=== PATIENT | female | born 1980 | race Caucasian/White ===

== ENCOUNTER 2016-09-28 20:40 | Emergency (ER) | payer MEDICAID ==
[2016-09-28] MEDS ORDERED: CLINDAMYCIN 150 MG CAP PO ONE (21:17)
--- NOTE | 2016-09-28 21:20 | Emergency Department Record ---
History of Present Illness - General Chief complaint: Dental Stated complaint: DENTAL PAIN Time Seen by Provider: 09/28/16 21:17 Source: Patient Mode of Arrival: Ambulatory Limitations: No limitations - History of Present Illness Initial comments: 36 yo female presents to ED with a CC of dental pain to the left lower mandible. Patient reports a history of dental caries, but reports her symptoms have worsened and that she is concerned about dental abscess. Patient denies fevers, chills. or recent illness symptoms. MD complaint: Tooth pain Onset/Timin -: Days(s) Location: Tooth # 1 - Dental caries Severity scale (1-10): 10 Quality: Sharp Consistency: Constant, Getting worse Improves with: None Worsens with: None Context-Epistaxis: Aspirin use Context- Dental: History of dental caries Associated Symptoms: Toothache - Related Data Home Medications Medication Instructions Recorded Confirmed Last Taken Aspirin 325 mg PO DAILY 09/28/16 09/28/16 Unknown Atorvastatin Calcium 20 mg PO DAILY 09/28/16 09/28/16 Unknown Levothyroxine Sodium 50 mcg PO DAILY 09/28/16 09/28/16 Unknown Metoprolol Tartrate 25 mg PO DAILY 09/28/16 09/28/16 Unknown Omeprazole 40 mg PO DAILY 09/28/16 09/28/16 Unknown Sertraline HCl [Zoloft] 50 mg PO DAILY 09/28/16 09/28/16 Unknown Previous Rx's Medication Instructions Recorded Clindamycin HCl 300 mg PO Q6H #28 capsule 09/28/16 Hydrocodone/Acetaminophen [[place] 1 tab PO Q6H PRN #10 tab 09/28/16 5mg/325mg] Allergies Allergy/AdvReac Type Severity Reaction Status Date / Time Penicillins Allergy Intermediate RASH Unverified 09/02/16 16:23 ibuprofen [From Motrin] AdvReac Intermediate cannot Unverified 09/02/16 16:23 take due to cardiac condition Travel Screening - Travel/Exposure Within Last 30 Days Have you traveled within the last 30 days?: No Review of Systems Constitutional: Denies: Chills, Fever, Malaise, Night sweats Eyes: Denies: Eye discharge, Eye pain ENT: Reports: Dental pain. Denies: Congestion, Ear pain, Epistaxis Respiratory: Denies: Cough, Dyspnea Cardiovascular: Denies: Chest pain, Dyspnea on exertion Endocrine: Denies: Fatigue, Heat or cold intolerance Gastrointestinal: Denies: Abdominal pain, Nausea, Vomiting Genitourinary: Denies: Incontinence, Retention Musculoskeletal: Denies: Arthralgia, Back pain Skin: Denies: Bruising, Change in color Neurological: Denies: Abnormal gait, Confusion, Headache, Seizure Psychiatric: Denies: Anxiety Hematological/Lymphatic: Denies: Anemia, Blood Clots Past Medical History - SOCIAL HISTORY Smoking Status: Never smoker Alcohol Use: None Drug Use: None - RESPIRATORY Hx Respiratory Disorders: No - CARDIOVASCULAR Hx Cardio Disorders: Yes Hx Hypertension: Yes Comment:: Mumur - NEURO Hx Neuro Disorders: No - GI Hx GI Disorders: Yes Hx GI Bleed: Yes - Hx Genitourinary Disorders: Yes Hx Kidney Stones: Yes (hx) - ENDOCRINE Hx Endocrine Disorders: Yes Hx Thyroid Disease: Yes (hypo) - MUSCULOSKELETAL Hx Musculoskeletal Disorders: No - PSYCH Hx Psych Problems: Yes Hx Anxiety: Yes Hx Depression: Yes - HEMATOLOGY/ONCOLOGY Hx Hematology/Oncology Disorders: No Family Medical History Any Significant Family History?: No Physical Exam - General General Appearance: Alert, Oriented x3, Cooperative, Moderate distress Limitations: No limitations - Head Head exam: Atraumatic, Normocephalic, Normal inspection Head exam detail: negative: Abrasion, Contusion, Higgins's sign, General tenderness, Hematoma, Laceration - Eye Eye exam: Normal appearance. negative: Conjunctival injection, Periorbital swelling, Periorbital tenderness, Scleral icterus - ENT Ear exam: negative: Auricular hematoma, Auricular trauma Nasal Exam: negative: Active bleeding, Discharge, Dried blood, Foreign body Mouth exam: negative: Drooling, Laceration, Muffled voice, Tongue elevation Teeth exam: Dental caries, Dental tenderness # Throat exam: negative: Tonsillar erythema, Tonsillomegaly, R peritonsillar mass , L peritonsillar mass Image of Mouth/Teeth: 1 - Large dental carry present, no gingival abscess is present. - Neck Neck exam: Normal inspection. negative: Meningismus, Tenderness - Respiratory Respiratory exam: Normal lung sounds bilaterally. negative: Rales, Respiratory distress, Rhonchi, Stridor - Cardiovascular Cardiovascular Exam: Regular rate, Normal rhythm, Normal heart sounds - GI/Abdominal GI/Abdominal exam: Soft. negative: Rebound, Rigid, Tenderness - Rectal Rectal exam: Deferred - exam: Deferred - Extremities Extremities exam: Normal inspection. negative: Calf tenderness, Pedal edema, Tenderness - Back Back exam: Denies: CVA tenderness (R), CVA tenderness (L) - Neurological Neurological exam: Alert, Normal gait, Oriented X3 - Psychiatric Psychiatric exam: Normal affect, Normal mood - Skin Skin exam: Normal color. negative: Abrasion Type of lesion: negative: abrasion Course Vital Signs 09/28/16 20:56 Temperature 98.3 F Pulse Rate [ 65 Pulse Ox Probe] Respiratory 24 Rate Blood Pressure 176/90 [Left Arm] Pulse Ox 97 - Reevaluation(s) Reevaluation #1: 09/28/16 21:28 Patient reassessed and reports significant improvement following dental block, will discharge home on Clindamycin and [place] for her pain symptoms with instructions to follow-up with a dentist from our referral list in 1-3 days as directed. Procedures - Nerve Block Consent Obtained: Verbal consent Time Out Performed: Yes Local Anesthetic Used: Marcaine 0.5% Amount of anesthesia used: 2.5 Side: Right Intraoral Nerve Block: Inferior alveolar, Supraperiosteal Procedure Successful: Yes Complications: None Patient Tolerated Procedure: Good Disposition Disposition: Discharge Clinical Impression: Dental caries Disposition: Home, Self-Care Condition: (2) Stable Instructions: Dental Abscess (ED) Additional Instructions: Return to ED if your symptoms worsen or if you have any concerns. Clindamycin and [place] as directed for pain symptoms. Follow-up with a dentist from the referral form in 1-3 days as directed. Prescriptions: Clindamycin HCl 300 mg PO Q6H #28 capsule Hydrocodone/Acetaminophen [[place] 5mg/325mg] 1 tab PO Q6H PRN #10 tab PRN Reason: Pain - General Forms: Patient Portal Access Time of Disposition: 21:20
[2016-09-28] MEDS ORDERED: HYDROCODONE/APAP 5/325MG TABLET PO ONE (21:38)
== END 2016-09-28 21:58 | disposition home or self-care (01) ==
LOC: ER 20:40
DX: K02.9 Dental caries, unspecified (principal); E03.9 Hypothyroidism, unspecified
CPT/HCPCS: 99282

== ENCOUNTER 2017-09-08 19:28 | Emergency (ER) | payer MEDICAID ==
[2017-09-08] MEDS ORDERED: ONDANSETRON 4 MG ODT TABLET SL ONE (20:01)
--- NOTE | 2017-09-08 20:07 | Emergency Department Record ---
History of Present Illness - General Chief complaint: Toothache Stated complaint: DENTAL PAIN FROM ORAL SURGERY Time Seen by Provider: 09/08/17 20:01 Source: Patient Mode of Arrival: Ambulatory Limitations: No limitations - History of Present Illness Initial comments: 37 yo female presents to ED for evaluation of post-operative pain following (4) teeth that were removed by an oral surgeon 8 hours ago. Patient reports that she was prescribed [place] 5 mg, has taken one tablet following surgery, (1) more 2 hours ago but reports that her pain symptoms persist. Patient also reports nausea, reports that she has been swallowing a lot of blood. Patient denies contacting her oral surgeon ilana. Patient also reports a history of cardiac bypass surgery. MD complaint: Tooth pain Onset/Timin -: Hour(s) Severity: Severe Quality: Aching Consistency: Constant Improves with: None Worsens with: None Context- Dental: Poor dental care - Related Data Previous Rx's Medication Instructions Recorded Hydrocodone/Acetaminophen [[place] 1 tab PO Q6H PRN #10 tab 09/28/16 5mg/325mg] Allergies Allergy/AdvReac Type Severity Reaction Status Date / Time Penicillins Allergy Intermediate RASH Verified 09/08/17 20:03 ibuprofen [From Motrin] AdvReac Intermediate cannot Verified 09/08/17 20:03 take due to cardiac condition Review of Systems Constitutional: Denies: Chills, Fever, Malaise, Night sweats Eyes: Denies: Eye discharge, Eye pain ENT: Reports: Dental pain. Denies: Congestion, Ear pain, Epistaxis Respiratory: Denies: Cough, Dyspnea Cardiovascular: Denies: Chest pain, Dyspnea on exertion Endocrine: Denies: Fatigue, Heat or cold intolerance Gastrointestinal: Denies: Abdominal pain, Nausea, Vomiting Genitourinary: Denies: Incontinence, Retention Musculoskeletal: Denies: Arthralgia, Back pain, Gout, Joint swelling Skin: Denies: Bruising, Change in color Neurological: Denies: Abnormal gait, Confusion, Headache, Seizure Psychiatric: Denies: Anxiety Hematological/Lymphatic: Denies: Anemia, Blood Clots Past Medical History - SOCIAL HISTORY Smoking Status: Never smoker Drug Use: None - RESPIRATORY Hx Respiratory Disorders: No - CARDIOVASCULAR Hx Cardio Disorders: Yes Hx Hypertension: Yes Comment:: [facility]ur - NEURO Hx Neuro Disorders: No - GI Hx GI Disorders: Yes Hx GI Bleed: Yes - Hx Genitourinary Disorders: Yes Hx Kidney Stones: Yes (hx) - ENDOCRINE Hx Endocrine Disorders: Yes Hx Thyroid Disease: Yes (hypo) - MUSCULOSKELETAL Hx Musculoskeletal Disorders: No - PSYCH Hx Psych Problems: Yes Hx Anxiety: Yes Hx Depression: Yes - HEMATOLOGY/ONCOLOGY Hx Hematology/Oncology Disorders: No Physical Exam - General General Appearance: Alert, Oriented x3, Cooperative, Mild distress (Patient is resting calmly on examination) Limitations: No limitations - Head Head exam: Atraumatic, Other (STS to the right mid-face) Head exam detail: General tenderness. negative: Abrasion, Contusion, Higgins's sign, Hematoma, Laceration - Eye Eye exam: Normal appearance. negative: Conjunctival injection, Periorbital swelling, Periorbital tenderness, Scleral icterus - ENT Ear exam: negative: Auricular hematoma, Auricular trauma Nasal Exam: negative: Active bleeding, Discharge, Dried blood, Foreign body Mouth exam: negative: Drooling, Laceration, Muffled voice, Tongue elevation Image of Mouth/Teeth: 1 - Dental extraction, mild bleeding present 2 - Dental extraction, mild bleeding present 3 - Dental extraction, mild bleeding present 4 - Dental extraction, mild bleeding present - Neck Neck exam: Normal inspection. negative: Meningismus, Tenderness - Respiratory Respiratory exam: Normal lung sounds bilaterally. negative: Rales, Respiratory distress, Rhonchi, Stridor - Cardiovascular Cardiovascular Exam: Regular rate, Normal rhythm, Normal heart sounds, Other ( Well-healed scar to the midline of the chest) - GI/Abdominal GI/Abdominal exam: Soft. negative: Rebound, Rigid, Tenderness - Rectal Rectal exam: Deferred - exam: Deferred - Extremities Extremities exam: Normal inspection. negative: Pedal edema, Tenderness - Back Back exam: Denies: CVA tenderness (R), CVA tenderness (L) - Neurological Neurological exam: Alert, Normal gait, Oriented X3 - Psychiatric Psychiatric exam: Normal affect, Normal mood - Skin Skin exam: Normal color. negative: Abrasion Type of lesion: negative: abrasion Course Vital Signs 09/08/17 19:56 Temperature 98.5 F Pulse Rate [ 67 Pulse Ox Probe] Respiratory 16 Rate Blood Pressure 163/83 [Left Arm] Pulse Ox 97 - Reevaluation(s) Reevaluation #1: 09/08/17 20:08 Patient was seen and examined, patient appears calm on examination with pain controlled. Will administer Zofran and Toradol for her pain symptoms, and if her nausea symptoms are well controlled, trial another norco at this time. Reevaluation #2: 09/08/17 20:42 Patient was reassessed, reports that she is feeling much better, and reports that she is ready to go at this time. Disposition Disposition: Discharge Clinical Impression: Post-operative pain Disposition: Home, Self-Care Condition: (2) Stable Instructions: Pain Management After Surgery (GEN) Additional Instructions: Return to ED if your symptoms worsen or if you have any concerns. Continue Dietrich as prescribed. Call your surgeon tomorrow for further recommendations. Forms: Patient Portal Access Time of Disposition: 20:44 Quality - Quality Measures Quality Measures: N/A - Blood Pressure Screening Does Patient Have Any of the Following: No Blood Pressure Classification: Pre-Hypertensive BP Reading Systolic Measurement: 138 Diastolic Measurement: 77 Screening for High Blood Pressure: < Pre-Hypertensive BP, F/U Documented > [ G8950] Pre-Hypertensive Follow-up Interventions: Referral to alternative/primary care provider.
[2017-09-08] MEDS ORDERED: KETOROLAC 30 MG/ML VIAL IM ONE (20:09)
== END 2017-09-08 21:00 | disposition home or self-care (01) ==
LOC: ER 19:28
DX: G89.18 Other acute postprocedural pain (principal); K08.89 Other specified disorders of teeth and supporting structures; K08.409 Partial loss of teeth, unspecified cause, unspecified class; R11.0 Nausea; I10 Essential (primary) hypertension
CPT/HCPCS: 99283 ×2; 96372; J1885

== ENCOUNTER 2017-09-10 00:27 | Emergency (ER) | payer MEDICAID ==
[2017-09-10] MEDS ORDERED: KETOROLAC 60 MG/2 ML VIAL IM STA (00:32)
[2017-09-10] MEDS ORDERED: ONDANSETRON 4 MG ODT TABLET SL ONE (00:33)
--- NOTE | 2017-09-10 00:37 | Emergency Department Record ---
History of Present Illness - General Chief complaint: Dental Stated complaint: BROKEN TOOTH Time Seen by Provider: 09/10/17 00:29 Source: Patient Mode of Arrival: Ambulatory Limitations: No limitations - History of Present Illness Initial comments: 37 yo female returns to ED for continued pain symptoms related to her recent (4 tooth) dental extraction approximately 36 hours ago. Patient reports that the [place] that she was prescribed does not help. Patient reports due to a post- operative heart condition that she cannot take ibuprofen. Patient reports that her bleeding symptoms have improved today as well, and she is returning to receive Toradol that greatly improved her symptoms last night. MD complaint: Other (dental extraction pain) Onset/Timin -: Days(s) Severity: Severe Quality: Aching Consistency: Constant Improves with: NSAID Worsens with: None Context-Epistaxis: Recent surgery/procedure Context- Dental: History of dental caries - Related Data Previous Rx's Medication Instructions Recorded Hydrocodone/Acetaminophen [[place] 1 tab PO Q6H PRN #10 tab 09/28/16 5mg/325mg] Ondansetron [Zofran Odt] 4 mg PO Q8H PRN #15 tab.rapdis 09/10/17 Allergies Allergy/AdvReac Type Severity Reaction Status Date / Time Penicillins Allergy Intermediate RASH Verified 09/08/17 20:03 ibuprofen [From Motrin] AdvReac Intermediate cannot Verified 09/08/17 20:03 take due to cardiac condition Review of Systems Constitutional: Denies: Chills, Fever, Malaise, Night sweats Eyes: Denies: Eye discharge, Eye pain ENT: Denies: Congestion, Ear pain, Epistaxis Respiratory: Denies: Cough, Dyspnea Cardiovascular: Denies: Chest pain, Dyspnea on exertion Endocrine: Denies: Fatigue, Heat or cold intolerance Gastrointestinal: Denies: Abdominal pain, Nausea, Vomiting Genitourinary: Denies: Incontinence, Retention Musculoskeletal: Denies: Arthralgia, Back pain Skin: Denies: Bruising, Change in color Neurological: Denies: Abnormal gait, Confusion, Headache, Seizure Psychiatric: Denies: Anxiety Hematological/Lymphatic: Denies: Anemia, Blood Clots Past Medical History - SOCIAL HISTORY Smoking Status: Never smoker Drug Use: None - RESPIRATORY Hx Respiratory Disorders: No - CARDIOVASCULAR Hx Cardio Disorders: Yes Hx Hypertension: Yes Comment:: Mumur - NEURO Hx Neuro Disorders: No - GI Hx GI Disorders: Yes Hx GI Bleed: Yes - Hx Genitourinary Disorders: Yes Hx Kidney Stones: Yes (hx) - ENDOCRINE Hx Endocrine Disorders: Yes Hx Thyroid Disease: Yes (hypo) - MUSCULOSKELETAL Hx Musculoskeletal Disorders: No - PSYCH Hx Psych Problems: Yes Hx Anxiety: Yes Hx Depression: Yes - HEMATOLOGY/ONCOLOGY Hx Hematology/Oncology Disorders: No Family Medical History Hx Diabetes: Grandparents Hx Heart Disease: Grandparents Hx HTN: Father, Mother Physical Exam - General General Appearance: Alert, Oriented x3, Cooperative, Moderate distress Limitations: No limitations - Head Head exam: Atraumatic, Normocephalic, Normal inspection Head exam detail: negative: Abrasion, Contusion, Higgins's sign, General tenderness, Hematoma, Laceration - Eye Eye exam: Normal appearance. negative: Conjunctival injection, Periorbital swelling, Periorbital tenderness, Scleral icterus - ENT Ear exam: negative: Auricular hematoma, Auricular trauma Nasal Exam: negative: Active bleeding, Discharge, Dried blood, Foreign body Mouth exam: negative: Drooling, Laceration, Muffled voice, Tongue elevation Teeth exam: Dental tenderness #, Other Throat exam: negative: Tonsillar erythema, Tonsillomegaly, R peritonsillar mass , L peritonsillar mass Image of Mouth/Teeth: 1 - post-extraction site, no further bleeding. 2 - post-extraction site, no further bleeding. 3 - post-extraction site, no further bleeding. 4 - post-extraction site, no further bleeding. - Neck Neck exam: Normal inspection. negative: Meningismus, Tenderness - Respiratory Respiratory exam: Normal lung sounds bilaterally. negative: Rales, Respiratory distress, Rhonchi, Stridor - Cardiovascular Cardiovascular Exam: Regular rate, Normal rhythm, Normal heart sounds - GI/Abdominal GI/Abdominal exam: Soft. negative: Rebound, Rigid, Tenderness - Rectal Rectal exam: Deferred - exam: Deferred - Extremities Extremities exam: Normal inspection. negative: Pedal edema, Tenderness - Back Back exam: Denies: CVA tenderness (R), CVA tenderness (L) - Neurological Neurological exam: Alert, Normal gait, Oriented X3 - Psychiatric Psychiatric exam: Normal affect, Normal mood - Skin Skin exam: Normal color. negative: Abrasion Type of lesion: negative: abrasion Course - Reevaluation(s) Reevaluation #1: 09/10/17 00:39 Symptoms appear c/w post-operative pain, will adminsiter Zofran and Toradol as this improved her symptoms significantly last night. Reevaluation #2: 09/10/17 00:58 Symptoms improved on reassessment, appears stable for discharge at this time. Disposition Disposition: Discharge Clinical Impression: Post-operative pain Disposition: Home, Self-Care Condition: (2) Stable Instructions: Pain Management After Surgery (GEN) Additional Instructions: Return to ED if your symptoms worsen or if you have any concerns. Zofran as directed. Follow-up with your dentist in 1-3 days as directed. Prescriptions: Ondansetron [Zofran Odt] 4 mg PO Q8H PRN #15 tab.rapdis PRN Reason: Nausea/Vomiting Forms: Patient Portal Access Time of Disposition: 00:41 Quality - Quality Measures Quality Measures: N/A - Blood Pressure Screening Does Patient Have Any of the Following: No Blood Pressure Classification: Pre-Hypertensive BP Reading Systolic Measurement: 159 Diastolic Measurement: 86 Screening for High Blood Pressure: < Pre-Hypertensive BP, F/U Documented > [ G8950] Pre-Hypertensive Follow-up Interventions: Referral to alternative/primary care provider.
== END 2017-09-10 00:59 | disposition home or self-care (01) ==
LOC: ER 00:27
DX: G89.18 Other acute postprocedural pain (principal); K08.89 Other specified disorders of teeth and supporting structures; K08.409 Partial loss of teeth, unspecified cause, unspecified class; I10 Essential (primary) hypertension
CPT/HCPCS: 96372; 99283; J1885